=== PATIENT | female | born 1950 | race Caucasian/White ===

== ENCOUNTER 2016-08-16 12:55 | Emergency (ER) | payer MEDICARE, OTHER ==
[2016-08-16] MEDS ORDERED: 0.9 % SODIUM CHLORIDE 1,000 ML BAG IV ONE (13:35)
[2016-08-16] MEDS ORDERED: ONDANSETRON HCL IV 4 MG/2 ML VIAL IV ONE (13:35)
[2016-08-16 15:02] LABS: BASO % 0.2 % (0-6); EOS % 0.1 % (0-6); HEMATOCRIT 43.1 % (35.0-47.0); LYMPH % 4.1 % (16-45); MEAN CELL VOLUME 93.5 fl (81-97); MEAN CORPUSCULAR HEMOGLOBIN 32.5 pg (27-33); MEAN CORPUSCULAR HGB CONC 34.8 g/dl (32-36); MEAN PLATELET VOLUME 10.2 fl (7.4-10.4); MONO % 7.9 % (0-9); PLATELET COUNT 429 K/uL (130-400); RED BLOOD COUNT 4.61 M/uL (3.80-5.40); RED CELL DISTRIBUTION WIDTH 13.4 % (11.5-14.5); WHITE BLOOD COUNT W/O DIFF 12.1 K/uL (4.2-12.2)
[2016-08-16 15:15] LABS: ALB/GLOB RATIO 1.6 (1.1-1.8); ANION GAP 23.2 (7-16); BILIRUBIN,TOTAL 1.04 mg/dL (0.2-1.3); CARBON DIOXIDE 19.8 mmol/L (22-30); TOTAL PROTEIN 8.1 gm/dL (6.3-8.2)
[2016-08-16 15:20] LABS: PLATELET ESTIMATE INCREASED (NORMAL)
[2016-08-16 15:21] LABS: CREATININE 3.8 mg/dL (0.52-1.04)
[2016-08-16 15:47] LABS: CRYPTOSPORIDIUM PARVUM ANTIGEN NOT DETECTED (NOT DETECT); GIARDIA LAMBLIA ANTIGEN NOT DETECTED (NOT DETECT); ROTOVIRUS NOT DETECTED (NOT DETECT)
--- NOTE | 2016-08-16 16:14 | Emergency Department Record ---
History of Present Illness - General Chief complaint: Nausea, Vomiting, Diarrhea Stated complaint: FLU LIKE SYMPTOMS Time Seen by Provider: 08/16/16 13:29 Source: Patient Mode of Arrival: EMS Limitations: No limitations - History of Present Illness Initial comments: pt brought in by ems for vomiting diarrhea thru her ileostomy, abd pain for 5days. MD complaint: Abdominal pain, Diarrhea, Nausea, Vomiting Onset/Timin -: Days(s) Description of Vomiting: Bilious Description of Diarrhea: Water Location: Epigastric Severity: Moderate Quality: Aching Improves with: None Worsens with: None Context: Sick contacts Associated Symptoms: Loss of appetite, Nausea/vomiting, Weakness - Related Data Home Medications Medication Instructions Recorded Confirmed Last Taken Enalapril Maleate [Enalapril 10 mg PO DAILY 07/10/15 08/16/16 08/16/16 Maleate] Folic Acid [Folic Acid] 1 mg PO DAILY 07/10/15 08/16/16 08/16/16 Hydrochlorothiazide 25 mg PO DAILY 07/10/15 08/16/16 08/16/16 [Hydrochlorothiazide] Hydroxychloroquine Sulfate 200 mg PO DAILY 07/10/15 08/16/16 08/16/16 [Plaquenil] Omeprazole [Prilosec] 20 mg PO DAILY 07/10/15 08/16/16 08/16/16 Prednisone [Prednisone] 3 mg PO DAILY 07/10/15 08/16/16 08/16/16 Methotrexate Sodium [Methotrexate] 2.5 mg PO DAILY 02/06/16 08/16/16 08/16/16 Allopurinol [Zyloprim] 100 mg PO BID 08/16/16 08/16/16 08/16/16 Aspirin [Adult Low Dose Aspirin EC] 81 mg PO DAILY 08/16/16 08/16/16 08/16/16 Furosemide [Lasix] 20 mg PO DAILY 08/16/16 08/16/16 08/16/16 Allergies Allergy/AdvReac Type Severity Reaction Status Date / Time acetaminophen [From Percocet] Allergy ITCHING Verified 08/16/16 13:04 aspirin [From Percodan] Allergy ITCHING Verified 08/16/16 13:04 oxycodone HCl [From Percodan] Allergy ITCHING Verified 08/16/16 13:04 oxycodone terephthalate Allergy ITCHING Verified 08/16/16 13:04 [From Percodan] Travel Screening - Travel/Exposure Within Last 30 Days Have you traveled within the last 30 days?: No - Travel/Exposure Within Last Year Have you traveled outside the [place] in the last year?: No - Additonal Travel Details Have you been exposed to anyone with a communicable illness?: No - Travel Symptoms Symptom Screening: None Review of Systems Reviewed: No additional complaints except as noted below Constitutional: Reports: As per HPI. Denies: Chills, Fever, Malaise, Night sweats, Weakness, Weight change Eyes: Reports: As per HPI. Denies: Eye discharge, Eye pain, Photophobia, Vision change ENT: Reports: As per HPI. Denies: Congestion, Dental pain, Ear pain, Epistaxis , Hearing loss, Throat pain Respiratory: Reports: As per HPI. Denies: Cough, Dyspnea, Hemoptysis, Stridor, Wheezes Cardiovascular: Reports: As per HPI. Denies: Arrhythmia, Chest pain, Dyspnea on exertion, Edema, Murmurs, Orthopnea, Palpitations, Paroxysmal nocturnal dyspnea, Rheumatic Fever, Syncope Endocrine: Reports: As per HPI. Denies: Fatigue, Heat or cold intolerance, Polydipsia, Polyuria Gastrointestinal: Reports: As per HPI. Denies: Abdominal pain, Constipation, Diarrhea, Hematemesis, Hematochezia, Melena, Nausea, Vomiting Genitourinary: Reports: As per HPI. Denies: Abnormal menses, Discharge, Dyspareunia, Dysuria, Frequency, Hematuria, Incontinence, Retention, Urgency Musculoskeletal: Reports: As per HPI. Denies: Arthralgia, Back pain, Gout, Joint swelling, Myalgia, Neck pain Skin: Reports: As per HPI. Denies: Bruising, Change in color, Change in hair/ nails, Lesions, Pruritus, Rash Neurological: Reports: As per HPI. Denies: Abnormal gait, Confusion, Headache, Numbness, Paresthesias, Seizure, Tingling, Tremors, Vertigo, Weakness Psychiatric: Reports: As per HPI. Denies: Anxiety, Auditory hallucinations, Depression, Homicidal thoughts, Suicidal thoughts, Visual hallucinations Hematological/Lymphatic: Reports: As per HPI. Denies: Anemia, Blood Clots, Easy bleeding, Easy bruising, Swollen glands Past Medical History - SOCIAL HISTORY Smoking Status: Never smoker Alcohol Use: None Drug Use: None - RESPIRATORY Hx Respiratory Disorders: Yes Hx Asthma: Yes - CARDIOVASCULAR Hx Cardio Disorders: Yes Hx Deep Vein Thrombosis: Yes Hx Hypertension: Yes Hx Rheumatic Fever: Yes - NEURO Hx Neuro Disorders: No - GI Hx GI Disorders: Yes Comment:: chronic ulcerative colitis - Hx Genitourinary Disorders: Yes Hx Bladder Problem: Yes Hx Renal Disease: Yes Hx UTI: Yes - ENDOCRINE Hx Endocrine Disorders: Yes Hx Diabetes: Yes - MUSCULOSKELETAL Hx Musculoskeletal Disorders: Yes Hx Arthritis: Yes (osteoarthritis) Comment:: connective tissue disorder - PSYCH Hx Psych Problems: No - HEMATOLOGY/ONCOLOGY Hx Hematology/Oncology Disorders: Yes Hx Anemia: Yes Family Medical History Any Significant Family History?: No Physical Exam - General General Appearance: Alert, Oriented x3, Cooperative, Mild distress - Head Head exam: Normal inspection - Eye Eye exam: Normal appearance, PERRL, EOMI Pupils: Normal accommodation - ENT ENT exam: Normal exam, Mucous membranes dry, Normal external ear exam, Normal orophraynx Ear exam: Normal external inspection. negative: External canal tenderness Nasal Exam: Normal inspection. negative: Discharge, Sinus tenderness Mouth exam: Normal external inspection, Tongue normal Teeth exam: Normal inspection. negative: Dental caries Throat exam: Normal inspection. negative: Tonsillar erythema, Tonsillar exudate - Neck Neck exam: Normal inspection, Full ROM. negative: Tenderness - Respiratory Respiratory exam: Normal lung sounds bilaterally. negative: Respiratory distress - Cardiovascular Cardiovascular Exam: Regular rate, Normal rhythm, Normal heart sounds - GI/Abdominal GI/Abdominal exam: Soft, Normal bowel sounds, Tenderness - Rectal Rectal exam: Deferred - exam: Deferred - Extremities Extremities exam: Normal inspection, Full ROM, Normal capillary refill. negative: Tenderness - Back Back exam: Reports: Normal inspection, Full ROM. Denies: Muscle spasm, Rash noted, Tenderness - Neurological Neurological exam: Alert, CN II-XII intact, Normal gait, Oriented X3 - Psychiatric Psychiatric exam: Normal affect, Normal mood - Skin Skin exam: Dry, Intact, Normal color, Warm Course Vital Signs 08/16/16 08/16/16 13:08 15:07 Temperature 97.9 F Pulse Rate 70 Pulse Rate [ 75 Pulse Ox Probe] Respiratory 18 16 Rate Blood Pressure 139/94 Blood Pressure 138/87 [Left Arm] Pulse Ox 99 98 - Reevaluation(s) Reevaluation #1: 08/16/16 17:24 pt developed cp while being treated that felt like squeezing. pt has had no cardiac issues in the past she states. 08/16/16 17:29 Reevaluation #2: 08/16/16 17:25 pt feels better. 08/16/16 17:29 Reevaluation #3: 08/16/16 17:25 pt d/w dr baires who wants pt transferred Medical Decision Making - Management Options MDM Management: Additional Work-up Planned (e.g. ADM/Transfer/OP Study) - Data Complexity MDM Data: Labs Ordered and/or Reviewed, X-Ray Ordered and/or Reviewed, EKG Ordered and/or Reviewed - Lab Data Result diagrams: 08/16/16 14:50 08/16/16 14:50 Lab Results 08/16/16 08/16/16 08/16/16 Range/Units 14:50 14:50 14:50 WBC 12.1 (4.2-12.2) K/uL RBC 4.61 (3.80-5.40) M/uL Hgb 15.0 (11.6-16.0) gm/dl Hct 43.1 (35.0-47.0) % MCV 93.5 (81-97) fl MCH 32.5 (27-33) pg MCHC 34.8 (32-36) g/dl RDW 13.4 (11.5-14.5) % Plt Count 429 H (130-400) K/uL MPV 10.2 (7.4-10.4) fl Neutrophils % 90.0 H (47-80) % Lymphocytes % 2.0 L (16-45) % Monocytes % 8.0 (0-9) % Eosinophils % 0.1 (0-6) % Basophils % 0.2 (0-6) % Platelet Estimate Increased (NORMAL) RBC Morphology Normal Sodium 131 L (136-145) mmol/L Potassium 4.4 (3.5-5.1) mmol/L Chloride 88 L (98-107) mmol/L Carbon Dioxide 19.8 L (22-30) mmol/L Anion Gap 23.2 H (7-16) BUN 89 H (7-17) mg/dL Creatinine 3.8 H (0.52-1.04) mg/dL Estimated GFR 13 ml/min Random Glucose 226 H (70-110) mg/dL Lactic Acid 2.8 H (0.7-2.1) mmol/L Calcium 8.9 (8.5-10.1) mg/dL Total Bilirubin 1.04 (0.2-1.3) mg/dL AST 27 (14-36) U/L ALT 36 (9-52) U/L Alkaline Phosphatase 78 (38-126) U/L Troponin I (0.00-0.034) ng/mL Total Protein 8.1 (6.3-8.2) gm/dL Albumin 5.0 (3.5-5.0) gm/dL Globulin 3.1 (1.4-4.8) gm/dL Albumin/Globulin Ratio 1.6 (1.1-1.8) Lipase 322 H (23-300) U/L Stool Occult Blood Stool for White Cells Rotavirus Antigen (NOT DETECT) Cryptosporid parvum Ag (NOT DETECT) Giardia lamblia Ag (NOT DETECT) 08/16/16 08/16/16 08/16/16 Range/Units 14:50 15:00 15:00 WBC (4.2-12.2) K/uL RBC (3.80-5.40) M/uL Hgb (11.6-16.0) gm/dl Hct (35.0-47.0) % MCV (81-97) fl MCH (27-33) pg MCHC (32-36) g/dl RDW (11.5-14.5) % Plt Count (130-400) K/uL MPV (7.4-10.4) fl Neutrophils % (47-80) % Lymphocytes % (16-45) % Monocytes % (0-9) % Eosinophils % (0-6) % Basophils % (0-6) % Platelet Estimate (NORMAL) RBC Morphology Sodium (136-145) mmol/L Potassium (3.5-5.1) mmol/L Chloride (98-107) mmol/L Carbon Dioxide (22-30) mmol/L Anion Gap (7-16) BUN (7-17) mg/dL Creatinine (0.52-1.04) mg/dL Estimated GFR ml/min Random Glucose (70-110) mg/dL Lactic Acid (0.7-2.1) mmol/L Calcium (8.5-10.1) mg/dL Total Bilirubin (0.2-1.3) mg/dL AST (14-36) U/L ALT (9-52) U/L Alkaline Phosphatase (38-126) U/L Troponin I 0.084 H (0.00-0.034) ng/mL Total Protein (6.3-8.2) gm/dL Albumin (3.5-5.0) gm/dL Globulin (1.4-4.8) gm/dL Albumin/Globulin Ratio (1.1-1.8) Lipase (23-300) U/L Stool Occult Blood Negative Stool for White Cells No wbc's observed Rotavirus Antigen (NOT DETECT) Cryptosporid parvum Ag (NOT DETECT) Giardia lamblia Ag (NOT DETECT) 08/16/16 Range/Units 15:00 WBC (4.2-12.2) K/uL RBC (3.80-5.40) M/uL Hgb (11.6-16.0) gm/dl Hct (35.0-47.0) % MCV (81-97) fl MCH (27-33) pg MCHC (32-36) g/dl RDW (11.5-14.5) % Plt Count (130-400) K/uL MPV (7.4-10.4) fl Neutrophils % (47-80) % Lymphocytes % (16-45) % Monocytes % (0-9) % Eosinophils % (0-6) % Basophils % (0-6) % Platelet Estimate (NORMAL) RBC Morphology Sodium (136-145) mmol/L Potassium (3.5-5.1) mmol/L Chloride (98-107) mmol/L Carbon Dioxide (22-30) mmol/L Anion Gap (7-16) BUN (7-17) mg/dL Creatinine (0.52-1.04) mg/dL Estimated GFR ml/min Random Glucose (70-110) mg/dL Lactic Acid (0.7-2.1) mmol/L Calcium (8.5-10.1) mg/dL Total Bilirubin (0.2-1.3) mg/dL AST (14-36) U/L ALT (9-52) U/L Alkaline Phosphatase (38-126) U/L Troponin I (0.00-0.034) ng/mL Total Protein (6.3-8.2) gm/dL Albumin (3.5-5.0) gm/dL Globulin (1.4-4.8) gm/dL Albumin/Globulin Ratio (1.1-1.8) Lipase (23-300) U/L Stool Occult Blood Stool for White Cells Rotavirus Antigen Not detected (NOT DETECT) Cryptosporid parvum Ag Not detected (NOT DETECT) Giardia lamblia Ag Not detected (NOT DETECT) - EKG Data -: EKG Interpreted by Me EKG: No Acute Changes - Radiology Data Radiology results: Report reviewed, Image reviewed Disposition Disposition: Transfer Clinical Impression: Renal failure Pancreatitis Qualifiers: Chronicity: acute Pancreatitis type: idiopathic Acute pancreatitis complication : unspecified Qualified Code(s): K85.00 - Idiopathic acute pancreatitis without necrosis or infection Chest pain Qualifiers: Chest pain type: unspecified Qualified Code(s): R07.9 - Chest pain, unspecified Disposition: Acute Care Hospital Transfer Transfer To: [facility] Reason For Transfer: renal failure Accepting Physician: chio Chand Discussed w/Accepting Physician: 18:19 Forms: Patient Portal Access
[2016-08-16 17:06] LABS: MOLECULAR C DIFF TOXIN SCREEN NOT DETECTED
[2016-08-16 18:36] LABS: URINE APPEARANCE CLEAR; URINE BILIRUBIN SMALL (NEGATIVE); URINE BLOOD TRACE-I (NEGATIVE); URINE COLOR YELLOW; URINE GLUCOSE (UA) NEGATIVE (NEGATIVE); URINE KETONE NEGATIVE (NEGATIVE); URINE LEUKOCYTE ESTERASE NEGATIVE (NEGATIVE); URINE NITRITE NEGATIVE (NEGATIVE); URINE UROBILINOGEN 0.2 E.U./dL (0.20 - 1.00)
[2016-08-16 18:37] LABS: URINE EPITHELIAL CELLS 0 - 2 (FEW); URINE RBC 0 - 2 (NONE SEEN); URINE WBC 0 - 2 (0-2/hpf)
[2016-08-16 18:38] LABS: URINE BACTERIA NONE SEEN
== END 2016-08-16 19:20 | disposition short-term general hospital (02) ==
LOC: ER 12:55
DX: I12.9 Hypertensive chronic kidney disease with stage 1 through stage 4 chronic kidney disease, or unspecified chronic kidney disease (principal); N18.9 Chronic kidney disease, unspecified; N17.9 Acute kidney failure, unspecified; K85.00 Idiopathic acute pancreatitis without necrosis or infection; R07.9 Chest pain, unspecified; R11.2 Nausea with vomiting, unspecified; R19.7 Diarrhea, unspecified; R10.13 Epigastric pain; E11.22 Type 2 diabetes mellitus with diabetic chronic kidney disease
CPT/HCPCS: 99285 ×2; 96374; 83605; 83690; 87329; 84484; 80053; 81001; 89055; 87425; 87427; 82272; 87493; 85027; 71010; 93005; 93010; J2405; J7030